=== PATIENT | female | born 1990 | race Caucasian/White ===

== ENCOUNTER 2020-01-17 16:50 | Emergency (ER) | payer BC ==
[2020-01-17] MEDS ORDERED: Sodium Chloride 0.9% 1,000 ML IV ONE (16:58)
[2020-01-17] MEDS ORDERED: Ondansetron 4 MG/2 ML SDV IVPUSH ONE (16:58)
[2020-01-17] MEDS ORDERED: Ondansetron 4 MG/2 ML SDV ONE (17:32)
[2020-01-17] MEDS ORDERED: Albuterol/Ipratropium 3.0-0.5 MG/3 ML Neb Soln NEB PRN (18:00)
[2020-01-17] MEDS ORDERED: methylPREDNISolone Sodium Succinate 125 MG/2 ML SDV IVPUSH ONE (18:04)
[2020-01-17] MEDS ORDERED: methylPREDNISolone Sodium Succinate 125 MG/2 ML SDV ONE (18:13)
[2020-01-17] MEDS ORDERED: Albuterol/Ipratropium 3.0-0.5 MG/3 ML Neb Soln ONE (18:13)
--- NOTE | 2020-01-17 19:01 | EDM.PDOC ---
ED HPI GENERAL MEDICAL PROBLEM - General Chief Complaint: General Stated Complaint: FLU SYMPTOMS Time Seen by Provider: 01/17/20 17:20 Source of Information: Reports: Patient History Limitations: Reports: No Limitations - History of Present Illness INITIAL COMMENTS - FREE TEXT/NARRATIVE: Patient is a 29 y/o female who presents with cough, shortness of breath, and fatigue x 3 weeks. Patient had nausea and vomiting earlier today. She is unsure of her status. Patient denies fever, abd pain, diarrhea, constipation, dysuria, back pain, chest pain, headache, or dizziness. Social & Family History - Family History Family Medical History: No Pertinent Family History - Tobacco Use Tobacco Use Status *Q: Never Tobacco User Second Hand Smoke Exposure: No - Caffeine Use Caffeine Use: Reports: Coffee, Soda, Tea - Recreational Drug Use Recreational Drug Use: No ED ROS GENERAL - Review of Systems Review Of Systems: See Below Constitutional: Reports: Fatigue HEENT: Reports: No Symptoms Respiratory: Reports: Shortness of Breath, Cough Cardiovascular: Reports: No Symptoms GI/Abdominal: Reports: Nausea, Vomiting : Reports: No Symptoms Musculoskeletal: Reports: No Symptoms Skin: Reports: No Symptoms Neurological: Reports: No Symptoms Psychiatric: Reports: No Symptoms ED EXAM, GENERAL - Physical Exam Exam: See Below Exam Limited By: No Limitations General Appearance: Alert, No Apparent Distress Throat/Mouth: Normal Inspection, Normal Lips, Normal Oropharynx, Normal Voice, No Airway Compromise Head: Atraumatic, Normocephalic Neck: Normal Inspection, Supple, Non-Tender, Full Range of Motion Respiratory/Chest: No Respiratory Distress, Lungs Clear, Normal Breath Sounds, No Accessory Muscle Use, Chest Non-Tender, Other (tight sound cough bilaterally) Cardiovascular: Normal Peripheral Pulses, Regular Rate, Rhythm, No Edema, No Murmur GI/Abdominal: Normal Bowel Sounds, Soft, Non-Tender, No Distention Neurological: Alert, Oriented, CN II-XII Intact, Normal Cognition, Normal Gait, No Motor/Sensory Deficits Psychiatric: Normal Affect, Normal Mood Skin Exam: Warm, Dry, Intact, Normal Color, No Rash Course - Vital Signs Text/Narrative:: CXR is normal. Labs normal. Not . Patient given 1 L NS bolus, zofran, solumedrol, and duoneb. Patient feel better. Last Recorded V/S: Last Vital Signs Temp 37.0 C 01/17/20 17:15 Pulse 77 01/17/20 17:15 Resp 16 01/17/20 17:15 BP 135/88 01/17/20 17:15 Pulse Ox 98 01/17/20 17:15 - Orders/Labs/Meds Orders: Active Orders 24 hr Category Date Time Status RT Aerosol Therapy [RC] ASDIRECTED Care 01/17/20 18:00 Active RT Aerosol Therapy [RC] ASDIRECTED Care 01/17/20 18:04 Active Chest 2V [CR] Stat Exams 01/17/20 17:59 Taken Albuterol/Ipratropium [DuoNeb 3.0-0.5 MG/3 ML] Med 01/17/20 20:00 Active 3 ml NEB BID Albuterol/Ipratropium [DuoNeb 3.0-0.5 MG/3 ML] Med 01/17/20 18:00 Active 3 ml NEB Q2H PRN Medication Orders Albuterol/Ipratropium (Duoneb 3.0-0.5 Mg/3 Ml) 3 ml NEB Q2H PRN PRN Reason: Shortness of Breath Last Admin: 01/17/20 18:25 Dose: 3 ml Documented by: ISAIAH Albuterol/Ipratropium (Duoneb 3.0-0.5 Mg/3 Ml) 3 ml NEB BID PAVAN Last Admin: 01/17/20 18:25 Dose: Not Given Documented by: ISAIAH Labs: Laboratory Tests 01/17/20 01/17/20 01/17/20 Range/Units 16:55 16:58 16:58 WBC 8.3 (4.0-11.0) K/uL RBC 4.71 (3.80-5.80) M/uL Hgb 13.8 (11.5-16.5) g/dL Hct 39.8 (37.0-47.0) % MCV 85 (76-96) fL MCH 29.3 (27.0-32.0) pg MCHC 34.7 (31.0-35.0) g/dL RDW 12.7 (11.0-16.0) % Plt Count 255 (150-500) K/uL MPV 10.4 H (6.0-10.0) fL Neut % (Auto) 57.5 (45.0-70.0) % Lymph % (Auto) 35.7 (20.0-40.0) % Winston % (Auto) 4.3 (3.0-10.0) % Eos % (Auto) 2.0 (1.0-5.0) % Baso % (Auto) 0.5 (0.0-0.5) % Neut # (Auto) 4.77 (2.00-7.50) K/uL Lymph # (Auto) 2.96 (1.50-4.00) K/uL Winston # (Auto) 0.36 (0.20-0.80) K/uL Eos # (Auto) 0.17 (0.04-0.40) K/uL Baso # (Auto) 0.04 (0.02-0.10) K/uL Sodium 138 (136-145) mmol/L Potassium 3.6 (3.5-5.1) mmol/L Chloride 102 (98-107) mmol/L Carbon Dioxide 24.6 (21.0-32.0) mmol/L Anion Gap 15.0 (5.0-15.0) mmol/L BUN 20 D (8-26) mg/dL Creatinine 0.89 (0.55-1.02) mg/dL Est Cr Clr Drug Dosing 90.70 mL/min Estimated GFR (MDRD) > 60 (>60) MLS/MIN BUN/Creatinine Ratio 22.5 (6-25) Glucose 123 H (74-100) mg/dL Calcium 9.1 (8.5-10.1) mg/dL Total Bilirubin 0.2 (0.0-1.0) mg/dL AST 16 (15-37) U/L ALT 41 (12-78) U/L Alkaline Phosphatase 38 L (46-116) U/L Total Protein 7.5 (6.4-8.2) g/dL Albumin 4.1 (3.4-5.0) g/dL Globulin 3.4 (2.2-4.2) g/dL Albumin/Globulin Ratio 1.2 (0.8-2.0) HCG, Quant 0 (0-6) mIU/mL SARS CoV-2 RNA Rapid ADAN Negative Meds: Medications Generic Name Dose Route Start Last Admin Trade Name Freq PRN Reason Stop Dose Admin Albuterol/Ipratropium 3 ml 01/17/20 18:00 01/17/20 18:25 Duoneb 3.0-0.5 Mg/3 Ml NEB 3 ml Q2H PRN Administration Shortness of Breath Albuterol/Ipratropium 3 ml 01/17/20 20:00 01/17/20 18:25 Duoneb 3.0-0.5 Mg/3 Ml NEB Not Given BID PAVAN Discontinued Medications Generic Name Dose Route Start Last Admin Trade Name Freq PRN Reason Stop Dose Admin Albuterol/Ipratropium Confirm 01/17/20 18:13 01/17/20 18:23 Duoneb 3.0-0.5 Mg/3 Ml Administered 01/17/20 18:14 Not Given Dose 3 ml .ROUTE .STK-MED ONE Sodium Chloride 1,000 mls @ 999 mls/hr 01/17/20 16:58 01/17/20 17:30 Normal Saline IV 01/17/20 17:58 999 mls/hr .BOLUS ONE Administration Methylprednisolone Sodium Succinate 125 mg 01/17/20 18:04 01/17/20 18:19 Solu-Medrol IVPUSH 01/17/20 18:05 125 mg ONETIME ONE Administration Methylprednisolone Sodium Succinate Confirm 01/17/20 18:13 01/17/20 18:23 Solu-Medrol Administered 01/17/20 18:14 Not Given Dose 125 mg .ROUTE .STK-MED ONE Ondansetron HCl 4 mg 01/17/20 16:58 01/17/20 17:32 Zofran IVPUSH 01/17/20 16:59 4 mg ONETIME ONE Administration Ondansetron HCl Confirm 01/17/20 17:32 01/17/20 17:52 Zofran Administered 01/17/20 17:33 Not Given Dose 4 mg .ROUTE .STK-MED ONE Departure - Departure Time of Disposition: 19:00 Disposition: Home, Self-Care 01 Condition: Good Clinical Impression: Bronchitis - Discharge Information *PRESCRIPTION DRUG MONITORING PROGRAM REVIEWED*: Not Applicable *COPY OF PRESCRIPTION DRUG MONITORING REPORT IN PATIENT AYDEN: Not Applicable Instructions: Acute Bronchitis, Adult Referrals: PCP,None [Primary Care Provider] - Forms: ED Department Discharge Additional Instructions: Discharge home. Albuterol Inhaler 2 puffs every 4 hours and 2 puffs before going to bed. Z-pack as directed. Increase fluids, no alcohol and caffeine. Try to drink half a gallon a day. Get lots of stress. Follow up in the clinic as needed. Sepsis Event Note (ED) - Evaluation Sepsis Screening Result: No Definite Risk - Focused Exam Vital Signs: Vital Signs Temp Pulse Resp BP Pulse Ox 01/17/20 17:15 37.0 C 77 16 135/88 98 01/17/20 17:06 37.0 C 73 16 98 - My Orders Last 24 Hours: My Active Orders 01/17/20 17:59 Chest 2V [CR] Stat 01/17/20 18:00 RT Aerosol Therapy [RC] ASDIRECTED Albuterol/Ipratropium [DuoNeb 3.0-0.5 MG/3 ML] 3 ml NEB Q2H PRN 01/17/20 18:04 RT Aerosol Therapy [RC] ASDIRECTED 01/17/20 20:00 Albuterol/Ipratropium [DuoNeb 3.0-0.5 MG/3 ML] 3 ml NEB BID - Assessment/Plan Last 24 Hours: My Active Orders 01/17/20 17:59 Chest 2V [CR] Stat 01/17/20 18:00 RT Aerosol Therapy [RC] ASDIRECTED Albuterol/Ipratropium [DuoNeb 3.0-0.5 MG/3 ML] 3 ml NEB Q2H PRN 01/17/20 18:04 RT Aerosol Therapy [RC] ASDIRECTED 01/17/20 20:00 Albuterol/Ipratropium [DuoNeb 3.0-0.5 MG/3 ML] 3 ml NEB BID Plan: medrol pack to start tomorrow as directed. use asthma inhaler 2 puffs q4 hours prn for cough/SOB
[2020-01-17] MEDS ORDERED: Albuterol/Ipratropium 3.0-0.5 MG/3 ML Neb Soln NEB SCH (20:00)
--- NOTE | 2020-01-18 09:21 | CR ---
DATE OF SERVICE: 01/17/20 CLINICAL DATA: SOB PA AND LATERAL CHEST: No priors. The heart size is normal. The lungs are clear. No pneumothorax. No pleural effusions. No evidence of acute intrathoracic disease. [id number] MTDD
== END 2020-01-17 18:55 | disposition home or self-care (01) ==
LOC: LB.ED 16:50
DX: J40 Bronchitis, not specified as acute or chronic (principal); Z20.828 Contact with and (suspected) exposure to other viral communicable diseases
CPT/HCPCS: 36415; 71046; 80053; 84702; 85025; 96374; 96375; 99285-25; J2405; J2930; J7030; J7620-GY; U0002

== ENCOUNTER 2021-01-31 17:22 | Emergency (ER) | payer BC ==
--- NOTE | 2021-01-31 18:22 | EDM.PDOC ---
ED HPI GENERAL MEDICAL PROBLEM - General Chief Complaint: Gastrointestinal Problem Stated Complaint: NAUSEA,VOMITING Time Seen by Provider: 01/31/21 17:45 Source of Information: Reports: Patient History Limitations: Reports: No Limitations - History of Present Illness INITIAL COMMENTS - FREE TEXT/NARRATIVE: 30-year-old female presents to the ED planing of cough pain. 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 Symptoms started yesterday. Positive for nausea vomiting, diarrhea, headache, ear pain, sinus pressure, sore throat. Pertinent medical history: Head cold on the of this month. Negative for: Chest pain, shortness of breath, syncope/near syncope, constipation, blood in the stool, black tarry stool, difficulty swallowing, blurred vision, or trauma, swollen red joints. Past Medical History HEENT History: Reports: None Cardiovascular History: Reports: None Respiratory History: Reports: None Gastrointestinal History: Reports: None Genitourinary History: Reports: None PERSONAL INJURY SPECIALIST History: Reports: None Musculoskeletal History: Reports: None Neurological History: Reports: None Psychiatric History: Reports: None Endocrine/Metabolic History: Reports: None Hematologic History: Reports: None Immunologic History: Reports: None Oncologic (Cancer) History: Reports: None Dermatologic History: Reports: None - Past Surgical History Head Surgeries/Procedures: Reports: None HEENT Surgical History: Reports: None Cardiovascular Surgical History: Reports: None Respiratory Surgical History: Reports: None GI Surgical History: Reports: None Female Surgical History: Reports: None Endocrine Surgical History: Reports: None Neurological Surgical History: Reports: None Musculoskeletal Surgical History: Reports: None Oncologic Surgical History: Reports: None Social & Family History - Family History Family Medical History: No Pertinent Family History - Tobacco Use Tobacco Use Status *Q: Never Tobacco User Second Hand Smoke Exposure: No - Caffeine Use Caffeine Use: Reports: Coffee, Soda Other Caffeine Use: occassional 3 a week - Recreational Drug Use Recreational Drug Use: No ED ROS ENT - Review of Systems Review Of Systems: Comprehensive ROS is negative, except as noted in HPI. ED EXAM, ENT - Physical Exam Exam: See Below Text/Narrative:: ABC intact. No apparent distress. No obvious trauma. Speaking in full sentences. Alert and oriented x3, GCS 456. Exam Limited By: No Limitations General Appearance: Alert, WD/WN, No Apparent Distress Eye Exam: Bilateral Eye: EOMI, PERRL Ears: Normal External Exam, Normal Canal, Hearing Grossly Normal, TM Fluid (Right TM serous effusion, left TM clear) Nose: Normal Inspection, Normal Mucousa, No Blood, Clear Rhinorrhea Mouth/Throat: Normal Inspection, Normal Gums, Normal Lips, Normal Oropharynx, Normal Teeth Head: Atraumatic, Normocephalic Neck: Normal Inspection, Supple, Non-Tender, Full Range of Motion Respiratory/Chest: No Respiratory Distress, Lungs Clear, Normal Breath Sounds, No Accessory Muscle Use, Chest Non-Tender Cardiovascular: Normal Peripheral Pulses, Regular Rate, Rhythm, No Edema, No Gallop, No JVD, No Murmur, No Rub GI/Abdominal: Normal Bowel Sounds, Soft, Non-Tender, No Organomegaly, No Distention, No Abnormal Bruit, No Mass (Female) Exam: Deferred Rectal (Female) Exam: Deferred Extremities: Normal Inspection, Normal Range of Motion, Non-Tender, No Pedal Edema, Normal Capillary Refill Neurological: Alert, Oriented, Normal Cognition Psychiatric: Normal Affect, Normal Mood Skin: Warm, Dry, Intact, Normal Color, No Rash Lymphatic: No Adenopathy Course - Orders/Labs/Meds Labs: Laboratory Tests 01/31/21 Range/Units 17:00 SARS CoV-2 RNA Rapid ADAN Negative Departure - Departure Time of Disposition: 18:05 Disposition: Home, Self-Care 01 Condition: Good Clinical Impression: Viral upper respiratory infection - Discharge Information *PRESCRIPTION DRUG MONITORING PROGRAM REVIEWED*: No *COPY OF PRESCRIPTION DRUG MONITORING REPORT IN PATIENT AYDEN: No Instructions: Upper Respiratory Infection, Adult, [id number] Referrals: PCP,Unknown [Primary Care Provider] - Forms: ED Department Discharge Additional Instructions: Hydrate with Pedialyte, May take nasal decongestants over the counter from pharmacy. Flush nasal passages with NS often, may use neti pot if using distilled or boiled water. Humidifier in house. Ibrprophen for discomfort. Sepsis Event Note (ED) - Evaluation Sepsis Screening Result: No Definite Risk - Assessment/Plan Assessment:: 30-year-old female presents for evaluation of cough, nausea vomiting, sinus pressure, ear pain. This is consistent with an upper respiratory infection that we are seeing in the community during this time. There is no signs at this point of other serious bacterial infection such as otitis media, retropharyngeal abscess, epiglottitis, peritonsillar abscess, strep pharyngitis, pneumonia, sinusitis, meningitis, bacteremia. Given clear lung sounds, lack of fever, no hypoxia and no respiratory distress I do not feel patient needs a chest x-ray at this point as the probability of bacterial pneumonia is very unlikely.. There are no concerning gastrointestinal symptoms at this point and no signs of d ehydration. Close follow-up with primary care physician is indicated. Return to the ED for fever greater than 103, protracted vomiting, confusion, shortness of breath Plan: ABC, history, exam, Covid test, patient education/shared decision-making, discussed symptomatic/supportive care for viral upper respiratory infection -Patient and/or used equipment sales representative understood and agreed to treatment plan. -All questions were answered to the patient's satisfaction. -Patient is discharged in stable condition. Patient to return to the ED if symptoms temperature greater than 103, shortness of breath, lethargy confusion dehydration.. Follow-up with primary care provider sometime within the next 2 weeks
== END 2021-01-31 18:05 | disposition home or self-care (01) ==
LOC: LB.ED 17:22
DX: J06.9 Acute upper respiratory infection, unspecified (principal); Z20.822 Contact with and (suspected) exposure to COVID-19
CPT/HCPCS: 99283; U0002

== ENCOUNTER 2021-02-24 09:01 | Emergency (ER) | payer BC ==
[2021-02-24] MEDS: Ondansetron 4 MG Tab.DIS PO ONE (09:52)
[2021-02-24] MEDS: Ondansetron 4 MG Tab.DIS ONE (11:36)
== END 2021-02-24 11:50 | disposition home or self-care (01) ==
LOC: LB.ED 09:01
DX: K52.9 Noninfective gastroenteritis and colitis, unspecified (principal); Z20.822 Contact with and (suspected) exposure to COVID-19
CPT/HCPCS: 36415; 74176; 80053; 83690; 85025; 87045; 87046; 87427; 87635; 99284; A9270; U0002

== ENCOUNTER 2021-03-09 09:22 | Emergency (ER) | payer BC ==
[2021-03-09] MEDS: diphenhydrAMINE 50 MG/ML SDV IM ONE ×2 (09:43→11:13)
[2021-03-09] MEDS: Triamcinolone Acetonide 40 MG/ML 1 ML SDV ONE (10:32)
[2021-03-09] MEDS: diphenhydrAMINE 50 MG/ML SDV ONE ×2 (10:32→11:31)
[2021-03-09] MEDS: Triamcinolone Acetonide 0.5% Crm 15 GM Tube ONE (10:32)
[2021-03-09] MEDS: Triamcinolone Acetonide 40 MG/ML 1 ML SDV INJECT ONE (10:33)
[2021-03-09] MEDS: Triamcinolone Acetonide 0.1% Crm 30 GM Tube TOP SCH (10:34)
[2021-03-09] MEDS: Famotidine 20 MG Tab PO ONE (11:23)
== END 2021-03-09 12:48 | disposition home or self-care (01) ==
LOC: LB.ED 09:22
DX: T36.8X5A Adverse effect of other systemic antibiotics, initial encounter (principal); Z88.5 Allergy status to narcotic agent; Z88.1 Allergy status to other antibiotic agents
CPT/HCPCS: 36415; 85025; 96372; 99284; A9270; J1200; J3301